=== PATIENT | male | born 1955 | race Caucasian/White ===

== ENCOUNTER 2018-08-25 15:24 | Emergency (ER) | payer OTHER ==
[2018-08-25] MEDS: LIDOCAINE 1% (MDV) 20 ML INJ SC (16:20)
[2018-08-25] MEDS: KETOROLAC 30 MG INJ IM (16:41)
[2018-08-25] MEDS: BACITRACIN 0.5%/ZINC 28.35 GM OINT TOP (19:13)
== END 2018-08-25 19:16 | disposition home or self-care (01) ==
LOC: FTE 19:16
DX: S71.111A Laceration without foreign body, right thigh, initial encounter (principal); I25.10 Atherosclerotic heart disease of native coronary artery without angina pectoris; W31.2XXA Contact with powered woodworking and forming machines, initial encounter; Y92.9 Unspecified place or not applicable; Z95.1 Presence of aortocoronary bypass graft
CPT/HCPCS: 12004; 96372; 99284-25

== ENCOUNTER 2018-08-27 12:56 | Emergency (ER) | payer OTHER ==
[2018-08-27] MEDS: BACITRACIN 0.9 GM OINT TOP (13:54)
[2018-08-27] MEDS: DIPHTH/TET/ACEL PERTUSS (ADULT) 0.5 ML VIAL IM* (13:54)
== END 2018-08-27 14:14 | disposition home or self-care (01) ==
LOC: FTE 12:56
DX: Z48.00 Encounter for change or removal of nonsurgical wound dressing (principal); I10 Essential (primary) hypertension; I25.10 Atherosclerotic heart disease of native coronary artery without angina pectoris; Z23 Encounter for immunization; Z95.1 Presence of aortocoronary bypass graft
CPT/HCPCS: 90471; 90715; 99283-25

== ENCOUNTER 2018-09-02 11:19 | Emergency (ER) | payer OTHER | END 2018-09-02 12:17 | disposition home or self-care (01) | LOC: FTE 11:19 | DX: Z48.02 Encounter for removal of sutures (principal); I10 Essential (primary) hypertension; I25.10 Atherosclerotic heart disease of native coronary artery without angina pectoris; Z95.1 Presence of aortocoronary bypass graft | CPT/HCPCS: 99281; Z7502 ==